=== PATIENT | female | born 1985 | race Caucasian/White ===

== ENCOUNTER 2017-08-05 13:20 | Emergency (ER) | payer OTHER ==
[~2017-08-05] VITALS: Ht 167.6 cm; Wt 68.0 kg
--- NOTE | 2017-08-05 13:59 | RAD ---
Indication: Right foot pain across metatarsals upper rolling foot yesterday. Technique: 3 views of the right foot Comparison: None Findings: No acute fracture or dislocation. No soft tissue abnormality. No degenerative process. Impression: No acute findings.
[2017-08-05 14:15] VITALS: BP 122/75
[2017-08-05] MEDS ORDERED: IBUP800T19 PO (14:18)
--- NOTE | 2017-08-05 14:19 | PHYS DOC ---
Past History Past Medical History: No Pertinent History Past Surgical History: No Surgical History Alcohol Use: None Drug Use: None Adult General Chief Complaint Chief Complaint: FOOT INJURY PAIN HPI HPI 32-year-old female patient who works at [employer] state she lost her balance yesterday and had a fall without injury or loss of consciousness. Patient states she injured her right foot against the concrete care and since yesterday has had pain in right foot that getting worse with activity and bearing weight. Patient rated her pain moderate and states she took Advil and applied ice on her right foot. She denies focal neurodeficit. Review of Systems Review of Systems Constitutional: Denies fever or chills [] Eyes: Denies change in visual acuity, redness, or eye pain [] HENT: Denies nasal congestion or sore throat [] Respiratory: Denies cough or shortness of breath [] Cardiovascular: No additional information not addressed in HPI [] GI: Denies abdominal pain, nausea, vomiting, bloody stools or diarrhea [] : Denies dysuria or hematuria [] Musculoskeletal: Denies back pain , reports joint pain [] Integument: Denies rash or skin lesions [] Neurologic: Denies headache, focal weakness or sensory changes [] Endocrine: Denies polyuria or polydipsia [] All other systems were reviewed and found to be within normal limits, except as documented in this note. Allergies Allergies Allergies Coded Allergies Type Severity Reaction Last Updated Verified No Known Drug Allergies 08/05/17 No Physical Exam Physical Exam Constitutional: Well developed, well nourished, mild distress, non-toxic appearance. [] HENT: Normocephalic, atraumatic Eyes: PERRLA, EOMI, conjunctiva normal, no discharge. [] Neck: Normal range of motion, no tenderness, supple, no stridor. [] Cardiovascular:Heart rate regular rhythm, no murmur [] Lungs & Thorax: Bilateral breath sounds clear to auscultation [] Skin: Warm, dry, no erythema, no rash. [] Back: No tenderness, no CVA tenderness. [] Extremities: Right foot with contusion and ecchymosis on the proximal left dorsal side without tenderness, no neurovascular deficit, no deformity Neurologic: Alert and oriented X 3, normal motor function, normal sensory function, no focal deficits noted. [] Psychologic: Affect normal, judgement normal, mood normal. [] Current Patient Data Vital Signs Vital Signs Date Time Temp Pulse Resp B/P (MAP) Pulse Ox O2 Delivery O2 Flow Rate FiO2 08/05/17 13:53 72 20 161/69 (99) 97 Room Air 08/05/17 13:20 98.2 EKG EKG [] Radiology/Procedures Radiology/Procedures [ [address] [address] IMAGING REPORT Signed PATIENT: SIDDHARTHA ROGERS ACCOUNT: [id number] : 1985 LOCATION: ER AGE: 32 SEX: F EXAM STATUS: REG ER ORD. PHYSICIAN: JAQUAN CUADRA MD REASON: injury PROCEDURE: FOOT RIGHT 3V Indication: Right foot pain across metatarsals upper rolling foot yesterday. Technique: 3 views of the right foot Comparison: None Findings: No acute fracture or dislocation. No soft tissue abnormality. No degenerative process. Impression: No acute findings. DICTATED AND SIGNED BY: LORETTA BABB DO DATE: 08/05/17 1355 CC: JAQUAN CUADRA MD; PCP,NO ~ ] Course & Med Decision Making Course & Med Decision Making Pertinent Imaging studies reviewed. (See chart for details) discharge: I've spoken with the patient and/or caregivers. I've explained the patient's condition, diagnosis and treatment plan based on information available to me at this time. I've answered the patient's and/or caregivers questions and addressed any concerns. The patient and/or caregivers have a good understanding the patient's diagnosis, condition and treatment plan as can be expected at this point. Vital signs have been stabilized. The patient's condition is stable for discharge from the emergency department. The patient will pursue further outpatient evaluation with her primary care provider or other designated consulting physician as outlined in the discharge instructions. Patient and/or caregivers are agreeable to this plan of care and follow-up instructions have been explained in detail. The patient and/or caregivers have received these instructions in written format and expressed understanding of these discharge instructions. The patient and her caregivers are aware that if any significant change in condition or worsening of symptoms should prompt him to immediately return to this of the closest emergency department. If an emergent department is not readily available I would encourage him to call 911. Samanta Disclaimer Samanta Disclaimer This electronic medical record was generated, in whole or in part, using a voice recognition dictation system. Departure Departure: Impression: Primary Impression: Contusion of right foot Disposition: HOME, SELF-CARE (At 1406) Condition: STABLE Referrals: PCP,NO (PCP) Patient Instructions: Contusion Additional Instructions: Apply ice on the affected area Follow-up with your primary care physician in 3-5 days Return to ER if not getting better Scripts Ibuprofen (IBUPROFEN) 800 Mg Tablet 1 TAB PO TID, #30 TAB Prov: JAQUAN CUADRA MD 08/05/17 JAQUAN CUADRA MD Aug 05, 2017 14:19
== END 2017-08-05 14:25 | disposition home or self-care (01) ==
LOC: ER 13:20
DX: S90.31XA Contusion of right foot, initial encounter (principal); W19.XXXA Unspecified fall, initial encounter; Y93.89 Activity, other specified; Y99.8 Other external cause status; Y92.89 Other specified places as the place of occurrence of the external cause
CPT/HCPCS: 73630; 99284